=== PATIENT | female | born 1995 | race Caucasian/White ===

== ENCOUNTER 2020-03-03 14:21 | Emergency (ER) | payer OTHER ==
[~2020-03-03] VITALS: Ht 162.6 cm; Wt 101.2 kg
[2020-03-03] MEDS ORDERED: OMEPRAZOLE20 MG PO (14:49)
== END 2020-03-03 23:49 | disposition home or self-care (01) ==
LOC: ED 14:21
DX: R10.13 Epigastric pain (principal); Z91.018 Allergy to other foods; Z79.899 Other long term (current) drug therapy
CPT/HCPCS: 76705; 80053; 81001; 83690; 84703; 85025; 99284-25

== ENCOUNTER 2020-06-05 14:40 | Day surgery (SDC) | payer OTHER ==
[~2020-06-05] VITALS: Ht 162.6 cm; Wt 100.9 kg
--- NOTE | 2020-06-05 11:26 | NUR ---
06/05/20 1126 Priscilla Florence 1109 PT ARRIVED IN PACU NON RESPONSIVE TO NOXIOUS STIMULI WITH OPA IN PLACE. CHIN LIFT HELD BY RN. 1123 PT REACTIVE. OPA REMOVED. ICE TO ABD.
--- NOTE | 2020-06-05 12:30 | NUR ---
LE 1205: PT ARRIVES ON UNIT VIA STRETCHER FROM PACU. BEDSIDE REPORT RECEIVED AND CARE ASSUMED BY THIS AUTHOR. PT ALERT AND ORIENTED. COONVERSES WITH FAMILY AT THE BEDSIDE. DRESSING C/D/I. SCDS IN PLACE. PT WITH COMPLAINT OF PAIN, RX ADMINISTERED ORDERED. SEE PT EMAR FOR DETAILS. TOLERATING PO INTAKE AND DENIES NAUSEA. NO FURTHER NEEDS AT THIS TIME, CALL LIGHT WITHIN REACH
--- NOTE | 2020-06-05 12:42 | NUR ---
PT CALL FOR RN WITH REQ TO USE BR. DANGLES AT BEDSIDE, DENIES DIZZINESS AND SOB. UP TO BR WITH STANDBY ASSIST FROM THIS RN. STEADY GAIT. SUCCESSFUL FIRST POST OP VOID. AMBULATES BACK TO ROOM. DENIES FURTHER NEEDS, CALL LIGHT WITHIN REACH. FAMILY ATTENTIVE AT THE BEDSIDE
[~2020-06-05 14:40] MED LIST: MOTION SICKNESS25 M4 PO; OMEPRAZOLE20 MG PO; SUCRALFATE1 GM PO
--- NOTE | 2020-06-05 14:43 | NUR ---
LE 1305: PT ALERT AND ORIENTED AND USING CELL PHONE. VSS, REPORTS NAUSEA AT THIS TIME. RX ADMINISTERED ORDERED, SEE PT EMAR FOR DETAILS. DRESSING C/D/I. SCDS IN PLACE. NO FURTHER NEEDS VOICED 1415: PT REPORTS NAUSEA RESOLVED AND REQUESTS D/C. VSS, DRESSING C/D/I. D/C INSTRUCTIONS PROVIDED AND DISCUSSED ORDERED. PT VOICES UNDERSTANDING. SL D/C'D WITH CATH TIP INTACT AND PRESSURE APPLIED TO SITE. PT PREPARES FOR D/C 1425: PT WHEELED OFF OF UNIT IN W/C BY THIS RN. TRANSFERS INTO VEHICLE INDEPENDENTLY. RESP EVEN AND UNLABORED. NO PHYSICAL S/S OF DISTRESS AT THIS TIME
--- NOTE | 2020-06-06 07:23 | OR ---
[facility] [address] [place], [place] [address] Signed DATE OF OPERATION: 06/05/2020 SURGEON: Brandi Brennan MD PREOPERATIVE DIAGNOSES: 1. Chronic cholecystitis. 2. Biliary colic. POSTOPERATIVE DIAGNOSES: 1. Chronic cholecystitis. 2. Biliary colic. 3. Cholesterolosis. PROCEDURE: Laparoscopic cholecystectomy with intraoperative cholangiogram. ESTIMATED BLOOD LOSS: None. FINDINGS: The intraoperative cholangiogram was unremarkable. Lauri had moderate cholesterolosis. INDICATIONS: Lauri is a 24-year-old female with a body mass index of 38. She was having trouble over the last three or four months. She is having right upper quadrant abdominal pain, nausea and diarrhea after she eats. In the ER, her labs and ultrasound were unremarkable. A followup HIDA scan showed gallbladder ejection fraction 80%. However, injection of the CCK reproduced her symptoms. She said it was quite miserable. She was therefore asked to see me as a general surgeon. I met with Lauri and her sister in the office. We had a long discussion regarding the location and function of the gallbladder. I gave them a booklet on the gallbladder and we reviewed that together as well. She told me many family members have had their gallbladders removed. We discussed laparoscopic versus open cholecystectomy. She understands the expected intraop and postop course. There is risk to surgery including, but not limited to bleeding, infection, scarring, change in contour of the skin, damage to bowel, damage to main bile duct, incisional hernias and other unforeseen comorbidities. She had expressed understanding, wished to proceed. PROCEDURE NOTE: I met with Lauri, her sister and her mother in our preop area. After answering their Electronically Signed By: BRANDI BRENNAN MD 06/06/20 0723 PATIENT NAME: LAURI GA OPERATIVE REPORT DATE OF : [birth year] REPORT #: [id number] PHYSICIAN: BRANDI BRENNAN MD PCP: DEBBIE SINGH PAC REPORT IS CONFIDENTIAL AND NOT TO BE RELEASED WITHOUT AUTHORIZATION [facility] [address] [place], [place] [address] Signed questions, Lauri was taken into the operating room and placed in the supine position. She was placed under general endotracheal tube anesthesia. She was given preoperative antibiotics along with subcutaneous heparin. SCDs were utilized. She was then prepped and draped in the usual sterile fashion. All trocars were then placed in her usual positions under direct visualization of camera without difficulty. The triangle of Calot was dissected free and a clip was placed across the cystic artery and it was divided. The intraoperative cholangiocatheter was inserted into the cystic duct. The intraoperative cholangiogram was performed and found to be unremarkable. The cystic duct stump was secured with a PDS Endoloop. Two clips were placed across the cystic duct stump to mary its location. The gallbladder was then removed from the gallbladder fossa with the help of the cautery and placed into an EndoCatch bag. After this, we used our laparoscopic suturing device to pass 0-Vicryl suture on either side of the fascia of the subxiphoid trocar site. This was tied down to close this fascia primarily. After this, all the gas was allowed to escape and all the trocars were removed. The gallbladder was handed to our circulating nurse and opened on the back table. Pictures were taken for photodocumentation. The fascia of the supraumbilical trocar site was closed with interrupted simple and [id number] 0-Vicryl sutures. Local anesthetic was injected into all trocar sites. Each trocar site was irrigated and suctioned out until clear. The skin and dermis of each trocar site were closed with interrupted 3-0 subcuticular Monocryl sutures. Dry gauze and tape were applied to all incisions. Lauri was then awakened from her anesthesia, extubated in the OR, and taken to recovery room in stable condition. Brandi Brennan MD [facility]/MODL /[id number] cc: MD Edi Dorman PA Copies: BRANDI BRENNAN MD Electronically Signed By: BRANDI BRENNAN MD 06/06/20 0723 PATIENT NAME: ALURI GA OPERATIVE REPORT DATE OF : [birth year] REPORT #: [id number] PHYSICIAN: BRANDI BRENNAN MD PCP: DEBBIE SINGH PAC REPORT IS CONFIDENTIAL AND NOT TO BE RELEASED WITHOUT AUTHORIZATION [address] [address] Signed ~ Electronically Signed By: BRANDI BRENNAN MD 06/06/20 0723 PATIENT NAME: SURYLAURI REA OPERATIVE REPORT DATE OF : [birth year] REPORT #: [id number] PHYSICIAN: BRANDI BRENNAN MD PCP: DEBBIE SINGH [facility] REPORT IS CONFIDENTIAL AND NOT TO BE RELEASED WITHOUT AUTHORIZATION
--- NOTE | 2020-06-06 14:50 | PATH ---
[facility] [address] [place], [place] [address] Signed SPECIMEN(S): A GALLBLADDER SPECIMEN SOURCE: A. GALLBLADDER CLINICAL HISTORY: Laparoscopic cholecystectomy with IOC. Chronic cholecystitis, biliary colic. FINAL PATHOLOGIC DIAGNOSIS: Gallbladder, cholecystectomy: - Chronic cholecystitis. NAL:cml:C2NR MICROSCOPIC EXAMINATION: Histologic sections of all submitted blocks are examined by light microscopy. These findings, together with the gross examination, support the pathologic diagnosis. GROSS DESCRIPTION: The specimen, labeled "AJ, gallbladder," is received in formalin and consists of Specimen: Previously opened gallbladder. Dimensions: 5.5 cm in length and 3.0 cm in inner circumference. Serosa: Violaceous and smooth. Cystic Duct: Unobstructed. Calculi: No calculi are grossly identified within the gallbladder or within the container. Mucosa: Karns-stover and velvety. Wall thickness: 0.3 cm. Lymph node: No pericystic lymph nodes are grossly identified. Additional: None. Extracting Machine Operator sections are submitted in cassette (A1). JS (under the direct supervision of a pathologist) The Gross Description was prepared using a voice recognition system. The report was reviewed for accuracy; however, sound-alike word errors, addition and/or deletions may occur. If there is any question about this report, please contact Client Services. PERFORMING LABORATORY: The technical component was performed by [employer], [address] [place] [id number] (Custom Van Converter: Kelly Cage MD; CLIA# [id number]). PATIENT NAME: NIGHAT GA PATHOLOGY DATE OF : [birth year] REPORT #: [id number] PHYSICIAN: SOCORRO PEARSON PCP: DEBBIE SINGH PAC REPORT IS CONFIDENTIAL AND NOT TO BE RELEASED WITHOUT AUTHORIZATION [facility] [address] [place], [place] [address] Signed [facility], [address] [place] [id number] (CLIA# [id number]). Diagnostician: Katelyn Pham MD Pathologist Electronically Signed 06/06/2020 Copies: ~ PATIENT NAME: NIGHAT GA PATHOLOGY DATE OF : [birth year] REPORT #: [id number] PHYSICIAN: SOCORRO PEARSON PCP: DEBBIE SINGH PAC REPORT IS CONFIDENTIAL AND NOT TO BE RELEASED WITHOUT AUTHORIZATION
== END 2020-06-05 14:41 | disposition home or self-care (01) ==
LOC: DS 14:40
PROVIDERS: ATTEND Colon & Rectal Surgery
PROC: BF10YZZ Fluoroscopy of Bile Ducts using Other Contrast (ICD-10-PCS; 2020-06-05)
PROC: 0FT44ZZ Resection of Gallbladder, Percutaneous Endoscopic Approach (ICD-10-PCS; principal; 2020-06-05 09:30)
DX: K80.44 Calculus of bile duct with chronic cholecystitis without obstruction (principal); K82.8 Other specified diseases of gallbladder; E66.01 Morbid (severe) obesity due to excess calories; F84.0 Autistic disorder; H90.2 Conductive hearing loss, unspecified; G89.29 Other chronic pain; F32.9 Major depressive disorder, single episode, unspecified; F41.0 Panic disorder [episodic paroxysmal anxiety]; F40.240 Claustrophobia; Z68.38 Body mass index [BMI] 38.0-38.9, adult; Z91.018 Allergy to other foods; Z87.898 Personal history of other specified conditions
CPT/HCPCS: 00790; 74300; J0330; J0690; J1100; J1644; J1885; J2250; J2405; J2704; J2765; J3010; J7121; Q9967